=== PATIENT | female | born 1990 | race Caucasian/White ===

== ENCOUNTER 2024-04-10 12:46 | Outpatient (REF) | payer OTHER, SELFPAY ==
[2024-04-10 14:44] LABS: HCT 49.7 % (36.0-46.0); HGB 17.2 g/dL (11.2-15.7); MCH 30.6 pg (27.0-33.0); MCHC 34.6 % (32.0-36.0); MCV 88 fL (80-95); MPV 10.5 fL (8.0-11.0); Platelet Count 237 10^3/uL (130-400); RBC 5.63 10^6/uL (3.93-5.22); RDW 11.9 % (11.7-14.6); RDW-SD 38.7 fL; WBC 5.89 10^3/uL (4.4-10.8)
[2024-04-10 15:23] LABS: Iron 61 ug/dL (50-170); Total Iron Binding Capacity 275 ug/dL (250-450); Transferrin Sat 22 % (15-50)
[2024-04-10 15:27] LABS: ALT 27 U/L (14-59); AST 26 U/L (15-37); Albumin 4.5 g/dL (3.4-5.0); Alkaline Phosphatase 95 U/L (46-116); BUN 11 mg/dL (7-18); Calcium 9.4 mg/dL (8.5-10.1); Chloride 102 mmol/L (98-107); Estimated GFR 75.81 (mL/min/1.73m2); Ferritin 278 ng/mL (8-252); Glucose 95 mg/dL (74-106); Potassium 4.2 mmol/L (3.5-5.1); Sodium 138 mmol/L (136-145); TSH (W/Ref FT4) 0.87 uIU/mL (0.36-3.74); Total Protein 8.1 g/dL (6.4-8.2); Vitamin B12 416 pg/mL (193-986)
== END 2024-04-10 12:47 | disposition home or self-care (01) ==
LOC: NCHCN 12:46
PROVIDERS: PCP Family Medicine; Visit Provider Family Medicine
DX: D64.9 Anemia, unspecified (principal)
CPT/HCPCS: 80053; 85027; 82607; 82728; 83540; 83550; 84443